=== PATIENT | female | born 1975 | race Caucasian/White ===

== ENCOUNTER 2017-06-01 06:08 | Emergency (ER) | payer SELFPAY ==
[~2017-06-01] VITALS: Ht 172.7 cm; Wt 83.9 kg
[~2017-06-01 06:08] MED LIST: HYDR-971 PO
[2017-06-01] MEDS ORDERED: IV NORMAL SALINE 1,000ML 1,000 ML IV SCH (06:58)
[2017-06-01 07:00] VITALS: BP 118/97
[2017-06-01] MEDS ORDERED: 0.9 % SODIUM CHLORIDE 10 ML DISP.SYRIN. IV PRN (07:00)
--- NOTE | 2017-06-01 07:07 | PHYS DOC ---
Past History Past Medical History: Other Past Surgical History: Tonsillectomy, Tubal ligation Smoking: Greater than 1 pack/day Alcohol Use: Occasionally Drug Use: None Adult General Chief Complaint Chief Complaint: abdominal pain HPI HPI Patient is a pleasant non 41-year-old female who presents with abdominal pain began several days ago. Initially began as a cramping pain in the lower abdomen with some non-bloody nonmucoid diarrhea stool. She's had an issue with crampy abdominal pain that waxes and wanes in the left lower quadrant with some radiation to the left flank. Although she has no vaginal discharge no UTI symptoms, no nausea vomiting patient is also concerned that she may have been exposed to an STD as she discovered that her fianc has been cheating on her. We screened for an STD as well. She's been taking Motrin for her symptoms which has improved but since she was here she wanted to make sure that she was not having an issue with dehydration. She denies any travel outside the country, denies any recent antibiotic use or sick contacts with similar symptoms. Review of Systems Review of Systems Constitutional: Denies fever or chills [] Eyes: Denies change in visual acuity, redness, or eye pain [] HENT: Denies nasal congestion or sore throat [] Respiratory: Denies cough or shortness of breath [] Cardiovascular: No additional information not addressed in HPI [] GI: sHe has had some abdominal pain without nausea or vomiting but has had diarrhea without blood or mucus in her stools. : Denies dysuria or hematuria [] Musculoskeletal: Does describe some mild left flank pain Integument: Denies rash or skin lesions [] Neurologic: Denies headache, focal weakness or sensory changes [] Endocrine: Denies polyuria or polydipsia [] All other systems were reviewed and found to be within normal limits, except as documented in this note. Allergies Allergies Allergies Coded Allergies Type Severity Reaction Last Updated Verified No Known Drug Allergies 06/16/13 No Physical Exam Physical Exam Vital signs recorded on the chart patient within normal limits. Constitutional: Well developed, well nourished, no acute distress, non-toxic appearance. [] HENT: Normocephalic, atraumatic, bilateral external ears normal, oropharynx moist, Cardiovascular:Heart rate regular rhythm, no murmur [] Lungs & Thorax: Bilateral breath sounds clear to auscultation [] Abdomen: Bowel sounds normal, soft, no tenderness, no masses, no pulsatile masses. exam:[] External female genitalia, there is a slight thin mucoid whitish discharge non-malodorous there are no vaginal lesions, there is no CMT, no adnexal fullness or tenderness to palpation. Skin: Warm, dry, no erythema, no rash. [] Back: No tenderness, no CVA tenderness. [] Extremities: No tenderness, no cyanosis, no clubbing, ROM intact, no edema. [] Neurologic: Alert and oriented X 3, normal motor function, normal sensory function, no focal deficits noted. [] Psychologic: Affect normal, judgement normal, mood normal. [] Current Patient Data Lab Results Laboratory Tests Test 06/01/17 07:05 Urine Collection Type Unknown Urine Color Straw Urine Clarity Hazy Urine pH 6.5 Urine Specific [place] <=1.005 Urine Protein Neg (NEG-TRACE) Urine Glucose (UA) Neg mg/dL (NEG) Urine Ketones (Stick) Neg mg/dL (NEG) Urine Blood Neg (NEG) Urine Nitrite Neg (NEG) Urine Bilirubin Neg (NEG) Urine Urobilinogen Dipstick 0.2 mg/dL (0.2 mg/dL) Urine Leukocyte Esterase Trace (NEG) Urine RBC Rare /HPF (0-2) Urine WBC Occ /HPF (0-4) Urine Squamous Epithelial Cells Few /LPF Urine Bacteria 0 /HPF (0-FEW) Laboratory Tests Test 06/01/17 07:05 Urine Collection Type Unknown Urine Color Straw Urine Clarity Hazy Urine pH 6.5 Urine Specific [place] <=1.005 Urine Protein Neg (NEG-TRACE) Urine Glucose (UA) Neg mg/dL (NEG) Urine Ketones (Stick) Neg mg/dL (NEG) Urine Blood Neg (NEG) Urine Nitrite Neg (NEG) Urine Bilirubin Neg (NEG) Urine Urobilinogen Dipstick 0.2 mg/dL (0.2 mg/dL) Urine Leukocyte Esterase Trace (NEG) Urine RBC Rare /HPF (0-2) Urine WBC Occ /HPF (0-4) Urine Squamous Epithelial Cells Few /LPF Urine Bacteria 0 /HPF (0-FEW) EKG EKG [] Radiology/Procedures Radiology/Procedures [] [address] [address] IMAGING REPORT Signed PATIENT: LILIA PAULINO ACCOUNT: [id number] : 1975 LOCATION: ER AGE: 41 SEX: F EXAM STATUS: REG ER ORD. PHYSICIAN: RODOLFO PERALTA MD REASON: ab pain llq PROCEDURE: CT ABDOMEN PELVIS WO CONTRAST CT abdomen and pelvis without contrast Indication: Lower pelvic pain for 3 days. Since of bladder being full abdominal pain. Diarrhea for 5 days which has now ceased. Technique: CT abdomen and pelvis without IV contrast with multiplanar reformats. Comparison: None Findings: Heart is normal in size. No pericardial or pleural effusion. Clear lung bases. Limited evaluation of right abdominal organs due to lack of IV contrast. The noncontrast appearance of the liver is within normal limits. No megaly. No radiopaque gallstones. No pericholecystic fluid or gallbladder wall thickening. The noncontrast appearance of the pancreas is within normal limits. There is suggestion of pancreatic divisum. Adrenal glands show no mass lesion. No nephrolithiasis or hydronephrosis. No retroperitoneal or pelvic adenopathy. No bowel obstruction. Normal appendix. Uterus is anteverted with a 3.8 x 4.4 cm fundal fibroid. Bilateral ovaries are visualized with follicles. No inguinal adenopathy. No free pelvic fluid. No suspicious bony lesion. Impression: Limited evaluation of solid abdominal organs due to lack of IV contrast. 1. No nephrolithiasis or evidence of obstructive uropathy. 2. Fibroid uterus. 3. Suggestion of pancreatic divisum. PQRS Compliance Statement: One or more of the following individualized dose reduction techniques were utilized for this examination: 1. Automated exposure control 2. Adjustment of the mA and/or kV according to patient size 3. Use of iterative reconstruction technique Course & Med Decision Making Course & Med Decision Making Pertinent Labs and Imaging studies reviewed. (See chart for details) [] thispatient presents with left lower quadrant abdominal pain with diarrhea.My abdominal pain differential includes but not limited to ectopic , UTI, pyonephritis, cholecystitis, cholelithiasis, pancreatitis, appendicitis, small bowel obstruction, large bowel obstruction, diverticulosis, Diverticulum, intussusception, volvulus, irritable bowel disease, Crohn's or ulcerative colitis, considered upon arrival She is urine test was negative, her analysis shows slight contamination with white blood cells and epithelial cells but no bacteria. She has a slightly elevated white count of 11,000 Patient tells me that their symptoms given during CC are improved. We reviewed labs and radiology reports with patient at bedside the time is now 8:30 AM Janet Disclaimer Janet Disclaimer This electronic medical record was generated, in whole or in part, using a voice recognition dictation system. Departure Departure: Impression: Primary Impression: Abdominal pain Additional Impression: Diarrhea Disposition: HOME, SELF-CARE Condition: STABLE Referrals: PCP,NO (PCP) Patient Instructions: Abdominal Pain (Nonspecific), Diarrhea Additional Instructions: discharge: I've spoken with the patient and/or caregivers. I've explained the patient's condition, diagnosis and treatment plan based on information available to me at this time. I've answered the patient's and/or caregivers questions and addressed any concerns. The patient and/or caregivers have a good understanding the patient's diagnosis, condition and treatment plan as can be expected at this point. Vital signs have been stabilized. The patient's condition is stable for discharge from the emergency department. The patient will pursue further outpatient evaluation with her primary care provider or other designated consulting physician as outlined in the discharge instructions. Patient and/or caregivers are agreeable to this plan of care and follow-up instructions have been explained in detail. The patient and/or caregivers have received these instructions in written format and expressed understanding of these discharge instructions. The patient and her caregivers are aware that if any significant change in condition or worsening of symptoms should prompt him to immediately return to this of the closest emergency department. If an emergent department is not readily available I would encourage him to call 911. Scripts Diphenoxylate Hcl/Atropine (LOMOTIL TABLET) 1 Each Tablet 1 TAB PO QID, #20 TAB Prov: RODOLFO PERALTA MD 06/01/17 Dicyclomine Hcl (BENTYL) 10 Mg Capsule 1 CAP PO TID, #15 CAP.EC Prov: RODOLFO PERALTA MD 06/01/17 Problem Qualifiers RODOLFO PERALTA MD Jun 01, 2017 07:07
[2017-06-01] MEDS ORDERED: ONDANSETRON PF 4 MG/2 ML VIAL. IV ONE (07:30)
[2017-06-01] MEDS ORDERED: KETOROLAC 30 MG/ML VIAL. IV ONE (07:30)
[2017-06-01 07:38] LABS: BACTERIA,URINE 0 /HPF (0-FEW); BILIRUBIN,URINE NEG (NEG); CLARITY,URINE HAZY; COLOR,URINE STRAW; GLUCOSE,URINE NEG (NEG); NITRITE,URINE NEG (NEG); RBC,URINE RARE /HPF (0-2); SQUAMOUS EPITHELIAL CELL,UR FEW /LPF; UROBILINOGEN,URINE 0.2 mg/dL (0.2 mg/dL); WBC,URINE OCC /HPF (0-4)
--- NOTE | 2017-06-01 08:04 | RAD ---
CT abdomen and pelvis without contrast Indication: Lower pelvic pain for 3 days. Since of bladder being full abdominal pain. Diarrhea for 5 days which has now ceased. Technique: CT abdomen and pelvis without IV contrast with multiplanar reformats. Comparison: None Findings: Heart is normal in size. No pericardial or pleural effusion. Clear lung bases. Limited evaluation of right abdominal organs due to lack of IV contrast. The noncontrast appearance of the liver is within normal limits. No megaly. No radiopaque gallstones. No pericholecystic fluid or gallbladder wall thickening. The noncontrast appearance of the pancreas is within normal limits. There is suggestion of pancreatic divisum. Adrenal glands show no mass lesion. No nephrolithiasis or hydronephrosis. No retroperitoneal or pelvic adenopathy. No bowel obstruction. Normal appendix. Uterus is anteverted with a 3.8 x 4.4 cm fundal fibroid. Bilateral ovaries are visualized with follicles. No inguinal adenopathy. No free pelvic fluid. No suspicious bony lesion. Impression: Limited evaluation of solid abdominal organs due to lack of IV contrast. 1. No nephrolithiasis or evidence of obstructive uropathy. 2. Fibroid uterus. 3. Suggestion of pancreatic divisum. PQRS Compliance Statement: One or more of the following individualized dose reduction techniques were utilized for this examination: 1. Automated exposure control 2. Adjustment of the mA and/or kV according to patient size 3. Use of iterative reconstruction technique
[2017-06-01 08:18] LABS: BASO % 0 % (0-3); EOS # 0.1 x10^3/uL (0.0-0.7); EOS % 0 % (0-3); HEMATOCRIT 43.4 % (36.0-47.0); HEMOGLOBIN 15.2 g/dL (12.0-15.5); LYMPH # 1.4 x10^3/uL (1.0-4.8); LYMPH % 12 % (24-48); MEAN CORPUSCULAR HEMOGLOBIN 32 pg (25-35); MEAN CORPUSCULAR HGB CONC 35 g/dL (31-37); MEAN CORPUSCULAR VOLUME 91 fL (79-100); MONO # 0.4 x10^3/uL (0.0-1.1); MONO % 4 % (0-9); NEUT # 9.5 x10^3uL (1.8-7.7); NEUT % 83 % (31-73); PLATELET COUNT 171 x10^3/uL (140-400); RED BLOOD COUNT 4.79 x10^6/uL (3.50-5.40); RED CELL DISTRIBUTION WIDTH 13.5 % (11.5-14.5); WHITE BLOOD COUNT 11.4 x10^3/uL (4.0-11.0)
[2017-06-01] MEDS ORDERED: DICY10CA53 PO (08:27)
[2017-06-01] MEDS ORDERED: DIPH1TAB PO (08:27)
[2017-06-01 08:30] LABS: ALBUMIN 3.8 g/dL (3.4-5.0); ALBUMIN/GLOBULIN RATIO 1.2 (1.0-1.7); CALCIUM 8.1 mg/dL (8.5-10.1); CREATININE 0.7 mg/dL (0.6-1.0); GFR 93.2; POTASSIUM 4.1 mmol/L (3.5-5.1); TOTAL BILIRUBIN 0.3 mg/dL (0.2-1.0); TOTAL PROTEIN 7.1 g/dL (6.4-8.2)
[2017-06-01 08:35] LABS: U PREG PATIENT NEGATIVE (NEG)
[2017-06-02 17:08] LABS: CHLAMYDIA PROBE Negative (Negative)
== END 2017-06-01 08:50 | disposition home or self-care (01) ==
LOC: ER 06:08
DX: R10.32 Left lower quadrant pain (principal); R19.7 Diarrhea, unspecified; Z20.2 Contact with and (suspected) exposure to infections with a predominantly sexual mode of transmission
CPT/HCPCS: 36415; 74176; 80053; 81001; 81025; 83690; 85025; 87086; 87491; 87591; 96361; 96374; 96375; 99285; J1885; J2405; J7030

== ENCOUNTER 2017-12-16 11:44 | Emergency (ER) | payer SELFPAY ==
[~2017-12-16] VITALS: Ht 175.3 cm; Wt 90.7 kg
[~2017-12-16 11:44] MED LIST changes: +DICY10CA53 PO; +DIPH1TAB PO
[2017-12-16] MEDS ORDERED: MORPHINE SULFATE 5 MG/ML SYRINGE. IM ONE (12:15)
[2017-12-16] MEDS ORDERED: KETOROLAC 60 MG/2 ML VIAL. IM ONE (12:15)
[2017-12-16] MEDS ORDERED: diazePAM 2 MG TABLET PO ONE (12:15)
--- NOTE | 2017-12-16 12:18 | PHYS DOC ---
Past History Past Medical History: Migraines, Other Past Surgical History: Tonsillectomy, Tubal ligation Smoking: Greater than 1 pack/day Alcohol Use: Occasionally Drug Use: None Adult General Chief Complaint Chief Complaint: BACK PAIN OR INJURY HPI HPI Patient is a pleasant 42-year-old female who presents for evaluation of lower back pain which became worse than usual today. She states that she has had some mild low back pain over the last few weeks. Today the pain became worse and she first noticed it when she woke up. She does not take any prescribed medications. She has never had any advanced imaging of her lower back for any reason. She does not have any difficulty urinating or defecating or any focal weakness or numbness eared she does have some tingling in the left lower extremity from the lateral thigh to the anterior left knee area. Denies any trauma or any falls. She is alert and oriented 4, calm, and appears to be in no distress. She is able to walk to the emergency department room slowly but without difficulty. Review of Systems Review of Systems Constitutional: Denies fever or chills [] Eyes: Denies change in visual acuity, redness, or eye pain [] HENT: Denies nasal congestion or sore throat [] Respiratory: Denies cough or shortness of breath [] Cardiovascular: No additional information not addressed in HPI [] GI: Denies abdominal pain, nausea, vomiting, bloody stools or diarrhea [] : Denies dysuria or hematuria [] Musculoskeletal: +low back pain Integument: Denies rash or skin lesions [] Neurologic: Denies headache, focal weakness, left leg tingling Endocrine: Denies polyuria or polydipsia [] All other systems were reviewed and found to be within normal limits, except as documented in this note. Allergies Allergies Allergies Coded Allergies Type Severity Reaction Last Updated Verified No Known Drug Allergies 06/16/13 No Physical Exam Physical Exam Constitutional: Well developed, well nourished, no acute distress, non-toxic appearance. []Slightly tearful and anxious, prefers to sit up HENT: Normocephalic, atraumatic, bilateral external ears normal, oropharynx moist, no oral exudates, nose normal. [] Eyes: PERRLA, EOMI, conjunctiva normal, no discharge. [] Neck: Normal range of motion, no tenderness, supple, no stridor. [] Cardiovascular:Heart rate regular rhythm, no murmur [] Lungs & Thorax: Bilateral breath sounds clear to auscultation [] Abdomen: Bowel sounds normal, soft, no tenderness, no masses, no pulsatile masses. [] Skin: Warm, dry, no erythema, no rash. [] Back: no CVA tenderness. + Tenderness at the left paraspinal region at approximately L3-L4 Extremities: No tenderness, no cyanosis, no clubbing, ROM intact, no edema. [] Neurologic: Alert and oriented X 3, normal motor function, normal sensory function, no focal deficits noted. []Patient is able to walk but ambulates slowly Psychologic: Affect normal, judgement normal, mood normal. [] Current Patient Data Vital Signs Vital Signs Date Time Temp Pulse Resp B/P (MAP) Pulse Ox O2 Delivery O2 Flow Rate FiO2 12/16/17 12:03 97.8 89 22 97 Room Air EKG EKG [] Radiology/Procedures Radiology/Procedures Signed PATIENT: LILIA PAULINO ACCOUNT: [id number] : 1975 LOCATION: ER AGE: 42 SEX: F EXAM STATUS: REG ER ORD. PHYSICIAN: BETHANY BROWER DO REASON: low back pain, left leg radiculopathy, no trauma PROCEDURE: CT LUMBAR SPINE WO CONTRAST EXAM: Lumbar spine CT without contrast. HISTORY: Radiculopathy. TECHNIQUE: Computed tomographic images of the lumbar spine were obtained without contrast. Multiplanar reformatting was performed. *One or more of the following individualized dose reduction techniques were utilized for this examination: 1. Automated exposure control. 2. Adjustment of the mA and/or kV according to patient size. 3. Use of iterative reconstruction technique. COMPARISON: None. FINDINGS: There is no listhesis. There is no acute or subacute fracture. There is degenerative endplate remodeling with associated sclerosis, Schmorl's node formation and spurring at L4-L5. No suspicious lytic or sclerotic osseous lesion is seen. At L1-L2, L2-L3 and L3-L4, there is no stenosis. At L4-L5, there is a disc bulge with right predominant endplate osteophytosis. There is minimal bilateral facet arthropathy. There is mild right foraminal stenosis. There is minimal central canal stenosis. At L5-S1, there is no stenosis. IMPRESSION: 1. Degenerative changes at L4-L5, resulting in mild right foraminal stenosis. 2. No acute osseous finding. Electronically signed by: Funmi Carvalho MD (12/16/2017 12:55 PM) [place] [id number] DICTATED AND SIGNED BY: FUNMI CARVALHO MD DATE: 12/16/17 9259 CC: BETHANY BROWER DO; PCP,DARON ~ Course & Med Decision Making Course & Med Decision Making Pertinent Labs and Imaging studies reviewed. (See chart for details) @1300 - patient updated on imaging results. She has no additional complaints at this time. She states the pain medications helping. She'll be referred to a back specialist. Advised patient to take the prescribed medication as directed and as needed. She stable for discharge at this time. She is requesting a work note and this will be given to her. Dragon Disclaimer Dragon Disclaimer This electronic medical record was generated, in whole or in part, using a voice recognition dictation system. Departure Departure: Impression: Primary Impression: Herniated lumbar intervertebral disc Additional Impression: Low back pain Disposition: HOME, SELF-CARE Condition: STABLE Referrals: PCPDARON (PCP) MAURICIO WALKER MD Patient Instructions: Back Pain, Adult, Hernia, Surgical Repair, Care After Additional Instructions: Follow-up with a physician on the list provided or with Dr. Walker who is a automotive painter in the next 2-3 days. Return to the emergency department for new or worsening symptoms return to the prescribed medication as needed, as directed. Scripts Prednisone (PREDNISONE) 20 Mg Tablet 2 TAB PO DAILY for 5 Days, #10 TAB Prov: BETHANY BROWER DO 12/16/17 Hydrocodone Bit/Acetaminophen (NORCO 5-325 TABLET) 1 Each Tablet 1 TAB PO TID PRN for PAIN, #15 TAB Prov: BETHANY BROWER DO 12/16/17 Diazepam (VALIUM) 2 Mg Tablet 2 MG PO BID PRN for MUSCLE SPASMS, #15 TAB Prov: BETHANY BROWER DO 12/16/17 Problem Qualifiers BETHANY BROWER DO Dec 16, 2017 12:18
--- NOTE | 2017-12-16 12:58 | RAD ---
EXAM: Lumbar spine CT without contrast. HISTORY: Radiculopathy. TECHNIQUE: Computed tomographic images of the lumbar spine were obtained without contrast. Multiplanar reformatting was performed. *One or more of the following individualized dose reduction techniques were utilized for this examination: 1. Automated exposure control. 2. Adjustment of the mA and/or kV according to patient size. 3. Use of iterative reconstruction technique. COMPARISON: None. FINDINGS: There is no listhesis. There is no acute or subacute fracture. There is degenerative endplate remodeling with associated sclerosis, Schmorl's node formation and spurring at L4-L5. No suspicious lytic or sclerotic osseous lesion is seen. At L1-L2, L2-L3 and L3-L4, there is no stenosis. At L4-L5, there is a disc bulge with right predominant endplate osteophytosis. There is minimal bilateral facet arthropathy. There is mild right foraminal stenosis. There is minimal central canal stenosis. At L5-S1, there is no stenosis. IMPRESSION: 1. Degenerative changes at L4-L5, resulting in mild right foraminal stenosis. 2. No acute osseous finding. Electronically signed by: Funmi Rodarte MD (12/16/2017 12:55 PM) [id number]
[2017-12-16] MEDS ORDERED: DIAZ2TAB PO (13:14)
[2017-12-16] MEDS ORDERED: HYDR-971 PO (13:14)
[2017-12-16] MEDS ORDERED: PRED20TA PO (13:14)
[2017-12-16 13:45] VITALS: BP 132/90
== END 2017-12-16 13:45 | disposition home or self-care (01) ==
LOC: ER 11:44
DX: M51.26 Other intervertebral disc displacement, lumbar region (principal); G43.909 Migraine, unspecified, not intractable, without status migrainosus; F17.200 Nicotine dependence, unspecified, uncomplicated; Z98.51 Tubal ligation status
CPT/HCPCS: 72131; 96372; 99284; J1885; J2270

== ENCOUNTER 2021-06-03 11:58 | Emergency (ER) | payer SELFPAY ==
[~2021-06-03] VITALS: Ht 175.3 cm; Wt 80.5 kg
[2021-06-03 11:58] VITALS: BP 121/88
[~2021-06-03 11:58] MED LIST changes: +DIAZ2TAB PO; +HYDR-3165 PO; -HYDR-971 PO; +PRED20TA PO
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
== END 2021-06-03 13:04 | disposition home or self-care (01) ==
LOC: EEVIPCON 11:58 → ER 11:58
DX: T74.21XA Adult sexual abuse, confirmed, initial encounter (principal); S50.12XA Contusion of left forearm, initial encounter; S50.11XA Contusion of right forearm, initial encounter; S20.213A Contusion of bilateral front wall of thorax, initial encounter; G43.909 Migraine, unspecified, not intractable, without status migrainosus; Z87.891 Personal history of nicotine dependence; Y08.89XA Assault by other specified means, initial encounter; Y93.89 Activity, other specified; Y92.89 Other specified places as the place of occurrence of the external cause; Y99.8 Other external cause status
CPT/HCPCS: 99281